=== PATIENT | female | born 1970 | race Hispanic/Latino ===

== ENCOUNTER 2024-07-07 16:41 | Emergency (ER) | payer MEDICARE ==
[~2024-07-07] VITALS: Ht 165.1 cm; Wt 89.6 kg
[2024-07-07 18:09] LABS: BASO % 0.3 % (0.0-1.0); EOS % 1.3 % (0.0-3.0); HEMATOCRIT 38.9 % (36.0-47.0); HEMOGLOBIN 12.4 g/dl (12.0-15.5); LYMPH # 0.6 10^3/uL (1.5-5.0); LYMPH % 19.8 % (24.0-44.0); MEAN CORPUSCULAR HGB CONC 31.9 g/dl (32.0-36.5); MEAN CORPUSCULAR VOLUME 84.7 fl (80.0-96.0); MONO # 0.4 10^3/uL (0.0-0.8); MONO % 12.4 % (2.0-8.0); NEUTROPHILS # 1.9 10^3/uL (1.5-8.5); NEUTROPHILS % 64.9 % (36.0-66.0); PLATELET COUNT, AUTOMATED 144 10^3/uL (150-450); RED BLOOD COUNT 4.59 10^6/uL (4.00-5.40)
[2024-07-07 18:37] LABS: BLOOD UREA NITROGEN 17 MG/DL (9-23); CALCIUM LEVEL 8.8 MG/DL (8.5-10.1); CARBON DIOXIDE LEVEL 30 MMOL/L (20-31); CHLORIDE LEVEL 106 MMOL/L (98-107); CREATININE FOR GFR 0.61 MG/DL (0.55-1.30); GLOMERULAR FILTRATION RATE > 60.0 (>51); GLUCOSE, FASTING 98 MG/DL (60-100); POTASSIUM SERUM 3.7 MMOL/L (3.5-5.1); SODIUM LEVEL 144 MMOL/L (136-145)
[2024-07-07 20:04] VITALS: BP 110/64; TEMP 98.8; O2SAT 98
== END 2024-07-07 20:35 | disposition home or self-care (01) ==
LOC: M ED 16:41
DX: J06.9 Acute upper respiratory infection, unspecified (principal)

== ENCOUNTER 2024-07-12 16:05 | Emergency (ER) | payer MEDICARE ==
[~2024-07-12] VITALS: Ht 165.1 cm; Wt 88.9 kg
[2024-07-12 16:08] VITALS: BP 130/76; TEMP 97.3; O2SAT 98
[2024-07-12] MEDS: ALBUTEROL SULFATE 2.5MG/0.5ML INH NEB SOLN NEB ONE (19:35)
[2024-07-12] MEDS: predniSONE 20 MG TAB PO ONE (19:38)
[2024-07-12 20:16] LABS: HEMATOCRIT 38.9 % (36.0-47.0); HEMOGLOBIN 12.5 g/dl (12.0-15.5); MEAN CORPUSCULAR HEMOGLOBIN 26.8 pg (27.0-33.0); MEAN CORPUSCULAR HGB CONC 32.1 g/dl (32.0-36.5); MEAN CORPUSCULAR VOLUME 83.3 fl (80.0-96.0); PLATELET COUNT, AUTOMATED 157 10^3/uL (150-450); RED BLOOD COUNT 4.67 10^6/uL (4.00-5.40); WHITE BLOOD COUNT 3.9 10^3/uL (4.0-10.0)
[2024-07-12 20:33] LABS: BLOOD UREA NITROGEN 13 MG/DL (9-23); CALCIUM LEVEL 9.3 MG/DL (8.5-10.1); CARBON DIOXIDE LEVEL 28 MMOL/L (20-31); CHLORIDE LEVEL 108 MMOL/L (98-107); CREATININE FOR GFR 0.72 MG/DL (0.55-1.30); GLOMERULAR FILTRATION RATE > 60.0 (>51); GLUCOSE, FASTING 101 MG/DL (60-100); POTASSIUM SERUM 3.4 MMOL/L (3.5-5.1); SODIUM LEVEL 145 MMOL/L (136-145)
[2024-07-12] MEDS ORDERED: AMOX875T2 PO (20:44)
[2024-07-12] MEDS ORDERED: PRED20TA PO (20:44)
[2024-07-12 20:54] LABS: ATYPICAL LYMPH 6 % (0-5); BASOPHILS 2 % (0-1); EOSINOPHILS 5 % (0-3); LYMPHOCYTES 39 % (16-44); MONOCYTES 13 % (0-5); NEUTROPHILS 33 % (28-66)
[2024-07-12 20:55] LABS: PLATELET ESTIMATE NORMAL (NORMAL)
== END 2024-07-12 20:55 | disposition home or self-care (01) ==
LOC: M ED 16:05
DX: J20.9 Acute bronchitis, unspecified (principal); J01.00 Acute maxillary sinusitis, unspecified; B34.8 Other viral infections of unspecified site; Z11.52 Encounter for screening for COVID-19; J45.909 Unspecified asthma, uncomplicated; C90.00 Multiple myeloma not having achieved remission
CPT/HCPCS: 36415; 71046; 80048; 85025; 87486; 87581; 87633; 87798; 94640; 99283; J7512